=== PATIENT | male | born 1965 | race African-American/Black ===

== ENCOUNTER 2018-06-14 23:00 | Emergency (ER) | payer OTHER ==
[~2018-06-14] VITALS: Ht 152.4 cm; Wt 77.1 kg
[~2018-06-14 23:00] MED LIST: IBUPROFEN800 MG PO; PIRIDIUM
[2018-06-15] MEDS ORDERED: DICLOFENAC POTA50 MG PO (07:30)
[2018-06-15] MEDS ORDERED: LACTULOSE10 GM/15 M PO (07:30)
[2018-06-15] MEDS ORDERED: ULTRACET PO (07:30)
[2018-06-15] MEDS ORDERED: INTESTINEX680 M1 PO (07:30)
== END 2018-06-15 08:01 | disposition home or self-care (01) ==
LOC: ER 23:00
DX: K59.09 Other constipation (principal); M54.89 Other dorsalgia

== ENCOUNTER 2019-08-13 08:07 | Emergency (ER) | payer OTHER ==
[~2019-08-13] VITALS: Ht 175.3 cm; Wt 82.6 kg
[~2019-08-13 08:07] MED LIST changes: +DICLOFENAC POTA50 MG PO; +INTESTINEX680 M1 PO; +LACTULOSE10 GM/15 M PO; +ULTRACET PO
== END 2019-08-13 13:00 | disposition home or self-care (01) ==
LOC: ER 08:07
DX: M54.5 Low back pain (principal)

== ENCOUNTER 2019-09-29 18:23 | Emergency (ER) | payer OTHER ==
[~2019-09-29] VITALS: Ht 175.3 cm; Wt 81.6 kg
== END 2019-09-29 21:48 | disposition home or self-care (01) ==
LOC: ER 18:23
DX: M79.18 Myalgia, other site (principal)

== ENCOUNTER → 2021-06-08 | Emergency (ER) | payer OTHER ==
[~2021-06-08] VITALS: Ht 175.3 cm; Wt 81.2 kg
[~2021-06-08] MED LIST changes: +NAPROXEN500 MG PO; +ZOLOFT50 MG
== END | disposition home or self-care (01) ==
LOC: ER 20:37
DX: M54.89 Other dorsalgia (principal); B34.9 Viral infection, unspecified; R05.8 Other specified cough

== ENCOUNTER 2021-06-11 01:29 | Emergency (ER) | payer OTHER ==
[~2021-06-11] VITALS: Ht 175.3 cm; Wt 77.1 kg
[~2021-06-11 01:29] MED LIST changes: -NAPROXEN500 MG PO; -ZOLOFT50 MG
[2021-06-11] MEDS ORDERED: ZOLOFT50 MG (01:37)
[2021-06-11] MEDS ORDERED: NAPROXEN500 MG PO (04:48)
== END 2021-06-11 05:15 | disposition home or self-care (01) ==
LOC: ER 01:29
DX: B34.9 Viral infection, unspecified (principal); J02.9 Acute pharyngitis, unspecified; R51.9 Headache, unspecified; Z03.818 Encounter for observation for suspected exposure to other biological agents ruled out

== ENCOUNTER 2021-07-07 03:15 | Emergency (ER) | payer OTHER ==
[~2021-07-07] VITALS: Ht 175.3 cm; Wt 77.1 kg
[~2021-07-07 03:15] MED LIST changes: +NAPROXEN500 MG PO; +ZOLOFT50 MG
[2021-07-07] MEDS ORDERED: INTESTINEX680 M2 PO (04:30)
[2021-07-07] MEDS ORDERED: CLINDAMYCIN HC300 MG PO (04:30)
[2021-07-07] MEDS ORDERED: NAPROXEN500 MG PO (04:30)
== END 2021-07-07 04:36 | disposition home or self-care (01) ==
LOC: ER 03:15
DX: K04.7 Periapical abscess without sinus (principal)

== ENCOUNTER 2021-07-22 17:48 | Emergency (ER) | payer OTHER ==
[~2021-07-22] VITALS: Ht 175.3 cm; Wt 77.1 kg
[~2021-07-22 17:48] MED LIST changes: +CLINDAMYCIN HC300 MG PO; +INTESTINEX680 M2 PO
[2021-07-22] MEDS ORDERED: VISTARIL50 MG (18:07)
[2021-07-22] MEDS ORDERED: ZOLOFT50 MG (18:07)
[2021-07-22] MEDS ORDERED: DOXEPIN HCL25 MG (18:07)
== END 2021-07-22 21:20 | disposition home or self-care (01) ==
LOC: ER 17:48
DX: K29.60 Other gastritis without bleeding (principal)

== ENCOUNTER 2021-09-07 12:54 | Emergency (ER) | payer OTHER ==
[~2021-09-07] VITALS: Ht 175.3 cm; Wt 59.9 kg
[~2021-09-07 12:54] MED LIST changes: +DOXEPIN HCL25 MG; +VISTARIL50 MG
[2021-09-07] MEDS ORDERED: NORFLEX100MG PO (18:02)
[2021-09-07] MEDS ORDERED: KETO10TA2 PO (18:02)
== END 2021-09-07 18:05 | disposition home or self-care (01) ==
LOC: ER 12:54
DX: S02.2XXA Fracture of nasal bones, initial encounter for closed fracture (principal); S10.83XA Contusion of other specified part of neck, initial encounter; W18.09XA Striking against other object with subsequent fall, initial encounter; Y93.89 Activity, other specified; Y92.89 Other specified places as the place of occurrence of the external cause; Y99.8 Other external cause status

== ENCOUNTER 2022-02-15 16:56 | Emergency (ER) | payer OTHER ==
[~2022-02-15] VITALS: Ht 170.2 cm; Wt 68.0 kg
[~2022-02-15 16:56] MED LIST changes: +KETO10TA2 PO; +NORFLEX100MG PO
== END 2022-02-15 20:28 | disposition home or self-care (01) ==
LOC: ER 16:56
DX: K59.00 Constipation, unspecified (principal)

== ENCOUNTER → 2022-04-16 | Emergency (ER) | payer OTHER ==
[~2022-04-16] VITALS: Ht 175.3 cm; Wt 76.2 kg
[~2022-04-16] MED LIST changes: +VISTARIL25 MG; +ZOLOFT25 MG
== END | disposition left against medical advice (07) ==
LOC: ER 18:47
DX: R53.81 Other malaise (principal); Z88.0 Allergy status to penicillin

== ENCOUNTER → 2023-08-03 | Emergency (ER) | payer OTHER ==
[~2023-08-03] VITALS: Ht 170.2 cm; Wt 77.1 kg
[2023-08-03 15:27] LABS: HEMATOCRIT 42.6 % (39.0-48.0); HEMOGLOBIN 14.3 g/dL (13-16.00); MEAN CELL VOLUME 89.7 fL (80.0-100.00); MEAN CORPUSCULAR HEMOGLOBIN 30.2 pg (27.00-32.0); MEAN CORPUSCULAR HGB CONC 33.7 g/dl (32.0-36.0); PLATELET COUNT 205 K/uL (150-450); RED BLOOD COUNT 4.75 M/uL (4.00-6.00); RED CELL DISTRIBUTION WIDTH 13.9 % (11.5-14.5)
[2023-08-03 15:50] LABS: ALBUMIN 3.6 gm/dL (3.4-5.0); BILIRUBIN TOTAL 0.57 mg/dL (0.3-1.2); CALCIUM 8.8 mg/dL (8.5-10.1); CREATININE SERUM 1.06 mg/dL (0.70-1.30); GFR 71.76; GLOBULINA 3.2 G/DL (2.4-3.5); POTASSIUM 4.14 mEq/L (3.5-5.1); TOTAL PROTEIN 6.8 gm/dL (6.4-8.2)
[2023-08-03 16:15] LABS: COCAINE POSITIVE (NEGATIVE); METHADONE NEGATIVE (NEGATIVE); OPIATES NEGATIVE (NEGATIVE); THC ( Cannabinoids) POSITIVE (NEGATIVE)
== END | disposition home or self-care (01) ==
LOC: ER 08:24
PROVIDERS: Emergency Medicine
DX: R53.1 Weakness (principal); R53.81 Other malaise; F19.20 Other psychoactive substance dependence, uncomplicated; Z88.0 Allergy status to penicillin

== ENCOUNTER 2023-12-01 00:49 | Emergency (ER) | payer OTHER ==
[~2023-12-01] VITALS: Ht 175.3 cm; Wt 72.6 kg
[2023-12-01] MEDS ORDERED: ORPHENADRINE CITRATE 30 MG/ML AMPUL IM STA (02:59)
[2023-12-01] MEDS ORDERED: KETOROLAC TROMETHAMINE 60 MG VIAL IM STA (02:59)
== END 2023-12-01 07:37 | disposition home or self-care (01) ==
LOC: ER 00:49
DX: M62.830 Muscle spasm of back (principal); Z88.0 Allergy status to penicillin

== ENCOUNTER → 2024-05-28 | Emergency (ER) | payer OTHER ==
[~2024-05-28] VITALS: Ht 175.3 cm; Wt 70.3 kg
[~2024-05-28] MED LIST changes: +CLONAZEPAM0.5 MG PO
== END | disposition left against medical advice (07) ==
LOC: ER 10:55
DX: Z53.21 Procedure and treatment not carried out due to patient leaving prior to being seen by health care provider (principal)

== ENCOUNTER → 2024-06-11 | Emergency (ER) | payer OTHER ==
[~2024-06-11] VITALS: Ht 175.3 cm; Wt 69.9 kg
[~2024-06-11] MED LIST changes: +DIPHENHYDRAMINE HCL 50 MG/ML VIAL 1ML IM STA; +HALOPERIDOL LACTATE 5 MG/ML AMPUL IM STA; +hydrOXYzine PAMOATE 50 MG CAPSULE PO ONE
[2024-06-11 13:42] LABS: HEMOGLOBIN 14.3 g/dL (13-16.00); MEAN CELL VOLUME 91.5 fL (80.0-100.00); MEAN CORPUSCULAR HEMOGLOBIN 31.1 pg (27.00-32.0); PLATELET COUNT 200 K/uL (150-450); RED CELL DISTRIBUTION WIDTH 13.8 % (11.5-14.5)
[2024-06-11 15:16] LABS: ALBUMIN 3.9 gm/dL (3.4-5.0); BILIRUBIN TOTAL 0.67 mg/dL (0.3-1.2); CREATININE SERUM 0.97 mg/dL (0.70-1.30); GFR 79.22; GLOBULINA 3.3 G/DL (2.4-3.5); POTASSIUM 3.78 mEq/L (3.5-5.1); TOTAL PROTEIN 7.2 gm/dL (6.4-8.2)
[2024-06-11 15:32] LABS: PH,URINE 6.5 (5.0-8.0); URINE APPEARANCE Clear; URINE BILIRRUBIN Negative (NEGATIVE); URINE BLOOD Negative; URINE COLOR Yellow; URINE GLUCOSE Negative (NEGATIVE); URINE KETONE Negative (NEGATIVE); URINE LEUKOCYTE Negative; URINE NITRATE Negative; URINE PROTEIN Negative (NEGATIVE)
[2024-06-11 15:36] LABS: URINE EPITHELIAL CELLS 2.6 uL (0.0-38.8); URINE RBC 16.4 uL (0.0-20.8); URINE WBC 3.8 uL (0.0-23.2)
[2024-06-11 15:58] LABS: URINE CAST 0.15 uL (0.0-1.40)
[2024-06-11 16:43] LABS: METHADONE NEGATIVE (NEGATIVE); OPIATES NEGATIVE (NEGATIVE); THC ( Cannabinoids) NEGATIVE (NEGATIVE)
[2024-06-11 16:46] LABS: COCAINE POSITIVE (NEGATIVE)
== END | disposition left against medical advice (07) ==
LOC: ER 11:54
PROVIDERS: General Practice
DX: F41.8 Other specified anxiety disorders (principal); R45.851 Suicidal ideations; Z88.0 Allergy status to penicillin; Z20.822 Contact with and (suspected) exposure to COVID-19

== ENCOUNTER 2024-07-28 11:34 | Emergency (ER) | payer OTHER ==
[~2024-07-28] VITALS: Ht 175.3 cm; Wt 68.0 kg
[~2024-07-28 11:34] MED LIST changes: -DIPHENHYDRAMINE HCL 50 MG/ML VIAL 1ML IM STA; -HALOPERIDOL LACTATE 5 MG/ML AMPUL IM STA; -hydrOXYzine PAMOATE 50 MG CAPSULE PO ONE
== END 2024-07-28 12:25 | disposition home or self-care (01) ==
LOC: ER 11:34
DX: R53.81 Other malaise (principal); R51.9 Headache, unspecified; M79.10 Myalgia, unspecified site; Z88.0 Allergy status to penicillin

== ENCOUNTER 2024-10-22 14:36 | Emergency (ER) | payer OTHER ==
[~2024-10-22] VITALS: Ht 175.3 cm; Wt 70.8 kg
[2024-10-22] MEDS ORDERED: KETOROLAC TROMETHAMINE 60 MG VIAL IM STA (16:53)
[2024-10-22] MEDS ORDERED: hydrOXYzine PAMOATE 50 MG CAPSULE PO STA (16:53)
[2024-10-22] MEDS ORDERED: KETOROLAC TROMETHAMINE 60 MG VIAL IM ONE (16:57)
[2024-10-22] MEDS ORDERED: hydrOXYzine PAMOATE 50 MG CAPSULE PO ONE (16:57)
== END 2024-10-22 17:26 | disposition home or self-care (01) ==
LOC: ER 14:38
DX: R53.81 Other malaise (principal); Z88.0 Allergy status to penicillin
CPT/HCPCS: 96372; 99282; J1885

== ENCOUNTER 2025-03-30 17:26 | Emergency (ER) | payer OTHER ==
[~2025-03-30] VITALS: Ht 175.3 cm; Wt 73.5 kg
[2025-03-30] MEDS ORDERED: GUAIFEN/DEXTROMETHORPHAN/PE 10 ML BLIST.PACK PO ONE ×2 (19:30→20:02)
[2025-03-30] MEDS ORDERED: KETOROLAC TROMETHAMINE 30 MG VIAL IM ONE (19:45)
[2025-03-30] MEDS ORDERED: KETOROLAC TROMETHAMINE 30 MG VIAL ONE (19:59)
== END 2025-03-30 20:22 | disposition home or self-care (01) ==
LOC: ER 17:28
DX: J40 Bronchitis, not specified as acute or chronic (principal); F19.10 Other psychoactive substance abuse, uncomplicated; F32.A Depression, unspecified; Z88.0 Allergy status to penicillin

== ENCOUNTER 2025-04-20 18:17 | Emergency (ER) | payer OTHER ==
[~2025-04-20] VITALS: Ht 175.3 cm; Wt 70.8 kg
[2025-04-20] MEDS ORDERED: KETOROLAC TROMETHAMINE 10 MG TABLET PO ONE ×2 (20:05→20:15)
[2025-04-20] MEDS ORDERED: BENZONATATE 100 MG CAPSULE PO ONE (20:15)
== END 2025-04-20 20:15 | disposition home or self-care (01) ==
LOC: ER 18:17
DX: M54.89 Other dorsalgia (principal); R53.81 Other malaise; Z88.0 Allergy status to penicillin

== ENCOUNTER 2025-08-22 16:12 | Emergency (ER) | payer OTHER ==
[~2025-08-22] VITALS: Ht 175.3 cm; Wt 72.6 kg
== END 2025-08-22 22:26 | disposition left against medical advice (07) ==
LOC: ER 16:13
DX: B34.8 Other viral infections of unspecified site (principal); Z88.0 Allergy status to penicillin